=== PATIENT | male | born 1985 | race Caucasian/White ===

== ENCOUNTER 2017-12-01 12:18 | Emergency (ER) | payer SELFPAY ==
[~2017-12-01] VITALS: Ht 160 cm; Wt 70.2 kg
[~2017-12-01 12:18] MED LIST: FLEXERIL10 MG PO; FLOMAX0.4 MG PO; NAPROSYN500 MG PO; NO HOME MEDS; NOHOMEMEDS; PERCOCET 5/31 TABLET PO; PREDNISONE20 MG PO; PROAIR HFA8.5 GM IH; TESSALON PERLE100 MG PO; TYLENOL EXTRA500 MG PO; ULTRAM50 MG PO; VICODIN 5-3001 EACH PO; ZITHROMAX250 MG PO; ZOFRAN ODT8 MG PO; ZOFRAN4 MG PO
[2017-12-01] MEDS ORDERED: ZOFRAN ODT8 MG PO (15:48)
[2017-12-01] MEDS ORDERED: TAMIFLU75 MG PO (15:48)
[2017-12-01 16:06] VITALS: BP 111/68
== END 2017-12-01 16:13 | disposition home or self-care (01) ==
LOC: EME 12:18
DX: B34.9 Viral infection, unspecified (principal); K21.9 Gastro-esophageal reflux disease without esophagitis; Z87.891 Personal history of nicotine dependence; Z87.442 Personal history of urinary calculi
CPT/HCPCS: 71046; 99281; 99284; J1885